=== PATIENT | male | born 1935 | race African-American/Black ===

== ENCOUNTER 2016-10-28 12:27 | Inpatient (IN) | payer OTHER ==
[~2016-10-28] VITALS: Ht 182.9 cm; Wt 110.2 kg
[2016-10-28] VITALS (25 sets, daily range): BP systolic 64–128; BP diastolic 37–77
[~2016-10-28 12:27] MED LIST: GADOBENATE DIMEGLUMINE 529 MG/ML 10ML IV ONE
[2016-10-28 13:34] LABS: BASOPHILS % 0.6 % (0.0-2.0); LYMPHOCYTES % 23.9 % (20.0-50.0); MEAN CORPUSCULAR HEMOGLOBIN 16.9 pg (28.0-32.0); MEAN CORPUSCULAR VOLUME 58.3 fL (80.0-94.0); MEAN PLATELET VOLUME 8.6 fl (7.4-10.4); MONOCYTES % 7.6 % (2.0-8.0); NEUTROPHILS % 64.9 % (40.0-76.0); PLATELET 239 x1000/uL (130-400); RED BLOOD CELL COUNT 2.79 mill/uL (4.7-6.1); RED CELL DISTRIBUTION WIDTH 22.3 % (11.6-14.6)
[2016-10-28 13:46] LABS: CARBON DIOXIDE 34 mEq/L (21-32); CHLORIDE 97 mEq/L (98-107); HEMATOCRIT. 16.3 % (42.0-52.0); HEMOGLOBIN. 4.7 g/dL (14.0-18.0); TROPONIN I 0.02 ng/mL (0.00-0.04)
[2016-10-28 14:07] LABS: PLATELET ESTIMATE NORMAL
[2016-10-28] MEDS ORDERED: MANNITOL 20% 250 ML IV NR (15:45)
[2016-10-28] MEDS ORDERED: MANNITOL 20% (20GM/100ML) BAG 500ML PREMIX IV ONE (15:45)
[2016-10-28] MEDS ORDERED: PHENYTOIN SODIUM 1,000 MG in SODIUM CHLORIDE 0.9% 100 ML IV ONE (15:45)
[2016-10-28] MEDS ORDERED: DOCUSATE SODIUM 100MG CAPSULE PO PRN (18:15)
[2016-10-28] MEDS ORDERED: TRAMADOL 50MG TABLET PO PRN (18:15)
[2016-10-28] MEDS ORDERED: CLONIDINE 0.1MG TABLET PO PRN (18:15)
[2016-10-28] MEDS ORDERED: ONDANSETRON HCL 4MG/2ML VIAL IV PRN (18:15)
[2016-10-28] MEDS ORDERED: IPRATROPIUM/ALBUTEROL 0.5-3(2.5)MG/3ML NEB INH PRN (18:15)
[2016-10-28] MEDS ORDERED: LORAZEPAM 2MG/ML CPJ IV PRN (18:15)
[2016-10-28] MEDS ORDERED: GUAIFENESIN 200MG/10ML SUGAR FREE UDC PO PRN (18:15)
[2016-10-28] MEDS ORDERED: DIPHENHYDRAMINE 50MG/ML VIAL IV PRN (18:15)
[2016-10-28] MEDS ORDERED: ACETAMINOPHEN 325MG TABLET PO PRN (18:15)
[2016-10-28] MEDS ORDERED: NITROGLYCERIN 0.4MG TABLET SL SL PRN (18:15)
[2016-10-28] MEDS ORDERED: NA PHOS,M-B/NA PHOS,DI-BA ENEMA 118ML PR PRN (18:15)
[2016-10-28] MEDS: DEXT 5%/LACTATED RINGERS 1,000 ML IV SCH (18:17)
[2016-10-28] MEDS ORDERED: NOREPINEPHRINE 4 MG in DEXT 5% WATER 246 ML IV PRN (18:45)
[2016-10-28] MEDS ORDERED: OMEP20TA15 PO (18:54)
[2016-10-28] MEDS ORDERED: METOLAZONE PO (18:54)
[2016-10-28] MEDS ORDERED: TAMS-11 PO (18:54)
[2016-10-28] MEDS ORDERED: MINO2.5T19 PO (18:54)
[2016-10-28] MEDS ORDERED: DOCU-138 PO (18:54)
[2016-10-28] MEDS ORDERED: LISI40TA4 PO (18:54)
[2016-10-28] MEDS ORDERED: ASPI-1159 PO (18:54)
[2016-10-28] MEDS ORDERED: NORCO PO (18:54)
[2016-10-28] MEDS ORDERED: FURO80TA87 PO (18:54)
[2016-10-28] MEDS ORDERED: AMLO5TAB4 PO (18:54)
[2016-10-28] MEDS ORDERED: NITR0.4T3 SL (18:54)
[2016-10-28] MEDS ORDERED: SIMV40TA2 PO (18:54)
[2016-10-28] MEDS ORDERED: [UNRECOGNIZED DRUG - OTHER] PO (18:54)
[2016-10-28] MEDS ORDERED: METO50TA5 PO (18:54)
[2016-10-28 18:55] LABS: T4 FREE 1.08 ng/dL (0.76-1.46)
[2016-10-28 19:12] LABS: FOLIC ACID (FOLATE) SERUM 12.6 ng/mL (>5.38)
[2016-10-28] MEDS: MORPHINE SULFATE 2 MG/ML CPJ (NOT FOR IM USE) IV PRN (22:09)
[2016-10-28] MEDS: DEXAMETHASONE 4MG/ML 1ML VIAL IV SCH (23:43)
[2016-10-29] VITALS (73 sets, daily range): BP systolic 93–137; BP diastolic 34–86
[2016-10-29] MEDS: DEXAMETHASONE 4MG/ML 1ML VIAL IV SCH ×3 (05:18→18:20)
[2016-10-29] MEDS: MORPHINE SULFATE 2 MG/ML CPJ (NOT FOR IM USE) IV PRN ×3 (06:08→18:31)
[2016-10-29 06:51] LABS: HEMATOCRIT 23.4 % (42.0-52.0); HEMOGLOBIN 7.3 g/dL (14.0-18.0); MEAN CORPUSCULAR HEMOGLOBIN 20.1 pg (28.0-32.0); MEAN CORPUSCULAR VOLUME 64.6 fL (80.0-94.0); PLATELET 222 x1000/uL (130-400); RED BLOOD CELL COUNT 3.62 mill/uL (4.7-6.1); RED CELL DISTRIBUTION WIDTH 28.8 % (11.6-14.6)
[2016-10-29 06:58] LABS: CARBON DIOXIDE 33 mEq/L (21-32); CHLORIDE 101 mEq/L (98-107)
[2016-10-29] MEDS ORDERED: PANTOPRAZOLE SODIUM 40 MG/VIAL IV SCH (09:00)
[2016-10-29] MEDS: IPRATROPIUM/ALBUTEROL 0.5-3(2.5)MG/3ML NEB HHN SCH ×2 (10:00→16:07)
[2016-10-29] MEDS: DEXT 5%/LACTATED RINGERS 1,000 ML IV SCH (11:43)
[2016-10-29 17:21] LABS: HEMATOCRIT. 24.8 % (42.0-52.0); HEMOGLOBIN. 7.4 g/dL (14.0-18.0); MEAN CORPUSCULAR HEMOGLOBIN 19.5 pg (28.0-32.0); MEAN CORPUSCULAR VOLUME 65.7 fL (80.0-94.0); MEAN PLATELET VOLUME 8.3 fl (7.4-10.4); PLATELET 228 x1000/uL (130-400); RED BLOOD CELL COUNT 3.77 mill/uL (4.7-6.1); RED CELL DISTRIBUTION WIDTH 28.5 % (11.6-14.6)
[2016-10-29 20:59] LABS: NUCLEATED RED BLOOD CELLS 6 /100 WBC; PLATELET ESTIMATE NORMAL
[2016-10-29] MEDS ORDERED: PHENYTOIN SODIUM EXTENDED 100MG CAPSULE PO SCH (21:00)
== END 2016-10-29 20:25 | disposition short-term general hospital (02) | DRG 91 ==
LOC: ER 12:32 → MICUSO 15:58 → CANRESERV 16:38 → ENRESERV 16:38 → SUPCPDRO 18:03
PROVIDERS: ADMIT Internal Medicine; ATTEND Internal Medicine
PROC: 30233N1 Transfusion of Nonautologous Red Blood Cells into Peripheral Vein, Percutaneous Approach (ICD-10-PCS; principal; 2016-10-28)
PROC: 5A09357 Assistance with Respiratory Ventilation, Less than 24 Consecutive Hours, Continuous Positive Airway Pressure (ICD-10-PCS; 2016-10-29)
DX: G92 Toxic encephalopathy (principal); R57.1 Hypovolemic shock; N17.0 Acute kidney failure with tubular necrosis; E44.1 Mild protein-calorie malnutrition; D32.0 Benign neoplasm of cerebral meninges; D64.9 Anemia, unspecified; E11.9 Type 2 diabetes mellitus without complications; E78.00 Pure hypercholesterolemia, unspecified; E83.51 Hypocalcemia; E83.52 Hypercalcemia; G47.33 Obstructive sleep apnea (adult) (pediatric); I11.0 Hypertensive heart disease with heart failure; I25.10 Atherosclerotic heart disease of native coronary artery without angina pectoris; I50.9 Heart failure, unspecified; J44.9 Chronic obstructive pulmonary disease, unspecified; Z85.841 Personal history of malignant neoplasm of brain; I25.2 Old myocardial infarction; Z86.79 Personal history of other diseases of the circulatory system; Z99.81 Dependence on supplemental oxygen; Z68.33 Body mass index [BMI] 33.0-33.9, adult; Z90.49 Acquired absence of other specified parts of digestive tract; Z87.891 Personal history of nicotine dependence
CPT/HCPCS: 36415; 70450; 70553; 71010; 80048; 80053; 80061; 82607; 82746; 83036; 83540; 83550; 84439; 84443; 84484; 85025; 85027; 86850; 86900; 86920; 93005; 93970; 94640; 94660; 94664; 96365; 96368; 99291; A9577; C9113; J1100; J1165; J2270; J3490; J7030; J7050; J7060; J7620; P9016